=== PATIENT | male | born 1985 | race Two or more races ===

== ENCOUNTER 2024-10-12 12:53 | Emergency (ER) | payer OTHER, SELFPAY ==
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
--- NOTE | 2024-10-12 13:04 | EKG_ITS ---
[facility] Test Date: 2024-10-12 Pat Name: SANDRO MAGANA Department: Room: - Gender: Male Air Conditioning Specialist: : 1985 Requested By: Victoriano Duran Order Number: [id number] Reading MD: Victoriano Duran Measurements Intervals [place] Rate: 77 P: 61 SD: 172 QRS: 8 QRSD: 94 T: 17 QT: 365 QTc: 414 Interpretive Statements SINUS RHYTHM Compared to ECG 10/07/2023 16:00:03 T-wave abnormality no longer present Possible ischemia no longer present /store/S0/[id number]/ecg/[id number].pdf
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
[2024-10-12 13:05] VITALS: BP 194/132; PULSE 90; RESP 20; TEMP 36.4; O2SAT 99; BMI 23.7
[2024-10-12] MEDS: DIPHTH,PERTUSS(ACELL),TET VAC 0.5 ML SYR- ADULT IMi (13:33)
[2024-10-12] MEDS: HYDROcodone/APAP 5/325 TABLET 1 TAB PO ×2 (13:34→19:10)
[2024-10-12] MEDS: SILVER SULFADIAZINE CR 1% 25 GM TUBE TOP (13:34)
[2024-10-12] MEDS: SODIUM CHLORIDE 0.9% 1000 ML 1,000 ML 999 ML IV (13:54)
[2024-10-12 13:58] LABS: Basophils # (Auto) 0.0 Thou/mm3 (0.0-0.2); Basophils % (Auto) 1 % (0-2.5); Eosinophils # (Auto) 0.1 Thou/mm3 (0.0-0.5); Eosinophils % (Auto) 1 % (0-10); Hematocrit 43.3 % (41.0-53.0); Hemoglobin 15.1 g/dL (13.5-16.0); Immature Granulocytes Auto 0.01 Thou/mm3 (0.00-0.00); Lymphocytes # (Auto) 1.2 Thou/mm3 (1.0-4.8); Lymphocytes % (Auto) 22 % (10-50); Mean Corpuscular HGB Conc 34.9 g/dl (31.0-37.0); Mean Corpuscular Hemoglobin 29.2 pg (25.0-35.0); Mean Corpuscular Volume 84 fL (80-100); Monocytes # (Auto) 0.5 Thou/mm3 (0.0-0.8); Monocytes % (Auto) 9 % (0-12); Neutrophils # (Auto) 3.8 Thou/mm3 (1.8-7.7); Neutrophils % (Auto) 67 % (37-80); Nucleated Red Blood Cell # 0.00 Thou/mm3 (0.00-0.00); Nucleated Red Blood Cell % 0 /100 WBC (0); Platelet Count 283 Thou/mm3 (140-440); RDW Standard Deviation 40.8 fL (35.1-43.9); Red Blood Count 5.17 Miln/mm3 (4.50-5.90); White Blood Count 5.7 Thou/mm3 (3.8-10.6)
[2024-10-12 14:15] LABS: Alanine Aminotransferase 17 U/L (10-49); Albumin, Serum 5.2 gm/dL (3.5-5.0); Albumin/Globulin Ratio 2.0 (1.2-2.2); Alkaline Phosphatase 81 U/L (46-116); Anion Gap 13 (7-16); Aspartate Amino Transferase 18 U/L (0-34); BUN/Creatinine Ratio 10 Ratio (12-20); Bilirubin,Total 0.7 mg/dL (0.3-1.2); Blood Urea Nitrogen 11 mg/dL (9-23); Calcium 10.7 mg/dL (8.3-10.6); Calcium (Corrected) 10.7 mg/dL (8.5-10.1); Carbon Dioxide 24.8 mMol/L (20.0-31.0); Chloride 104 mMol/L (98-107); Creatinine (Component) 1.1 mg/dL (0.6-1.3); Estimated Creatinine Clearance 97.0 mL/min (>60); Globulin 2.6 gm/dL (2.3-3.5); Glucose 117 mg/dL (74-106); Osmolality,Calculated 283 (275-295); Potassium 4.1 mMol/L (3.4-5.1); Sodium 142 mMol/L (136-145); Total Protein 7.8 gm/dL (5.7-8.2); eGFR > 60 See Note
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
[2024-10-12] MEDS: TETRACAINE PF OP SOL 0.5% 4 ML DRPETTE 1 DROP BOTH EYES (17:33)
[2024-10-12] MEDS: FLUORESCEIN SOD 1 MG STRP BOTH EYES (17:34)
[2024-10-12] MEDS: ceFAZolin/D5W 1 GM IVPB 1 GM/50 ML BAG IV (17:35)
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
== END 2024-10-12 20:03 | disposition home or self-care (01) ==
PROVIDERS: Nurse Practitioner Family; Emergency Provider Emergency Medicine; PCP Family Medicine
DX: T20.20XA Burn of second degree of head, face, and neck, unspecified site, initial encounter (principal); T23.202A Burn of second degree of left hand, unspecified site, initial encounter; T31.11 Burns involving 10-19% of body surface with 10-19% third degree burns; R06.02 Shortness of breath; W86.8XXA Exposure to other electric current, initial encounter; Z23 Encounter for immunization
CPT/HCPCS: 36415; 71045; 80053; 85025; 90471; 90715; 93005; 96365; 99284; J0689; J7030; A9270